=== PATIENT | female | born 1975 | race Caucasian/White ===

== ENCOUNTER 2021-07-24 17:58 | Emergency (ER) | payer MEDICAID ==
[~2021-07-24] VITALS: Ht 162.6 cm; Wt 81.6 kg
[2021-07-24 18:21] VITALS: BP 145/91
--- NOTE | 2021-07-24 18:48 | NUR ---
46YO F C/O HYPOGASTRIC PAIN X 5 DAYS. PAIN 7/10 PRESSURE-LIKE. ALSO COMPLAINS OF URINARY FREQUENCY. DENIES N/V/D. DENIES DYSURIA, HEMATURIA. PT IS MENOPAUSAL. PT TOOK IBUPROFEN THIS AM WHICH PROVIDED NO RELIEF. IN ED, VSS. ABDOMEN SOFT, WITH TENDERNESS ON HYPOGASTRIC AREA. NORMOACTIVE BOWEL SOUNDS. PT POSITIONED COMFORTABLY IN BED. ERMD MADE AWARE OF PT STATUS. PMH: S/P APPENDECTOMY (2018), PRE-DIABETIC MEDS: NONE NKA
--- NOTE | 2021-07-24 19:20 | NUR ---
REPORT RECEIVED FROM FAUZIA TYSON FOR CONTINUITY OF PATIENT CARE AT THIS TIME.
--- NOTE | 2021-07-24 19:34 | NUR ---
REPORT GIVEN TO FAUZIA RAUSCH. ALL CARES TRANSFERRED AT THIS TIME.
[2021-07-24] MEDS ORDERED: PHENAZOPYRIDINE 100 MG TAB PO ONE (20:15)
[2021-07-24] MEDS ORDERED: KETOROLAC 30 MG/ML VIAL IM ONE (20:15)
[2021-07-24 21:32] LABS: APPEARANCE,URINE CLEAR (CLEAR); BILIRUBIN,URINE NEGATIVE (NEGATIVE); BLOOD, URINE NEGATIVE (NEGATIVE); COLOR,URINE YELLOW (YELLOW); LEUKOCYTE ESTERASE ,URINE 1+ (NEGATIVE); NITRITE, URINE NEGATIVE (NEGATIVE); UGLUCOSE NEGATIVE (NEGATIVE)
--- NOTE | 2021-07-24 21:33 | NUR ---
PATIENT LAYING IN BED SUPINE. BED LOCKED IN LOWEST POSITION W X1 SIDERAIL UP. PATIENT W C/O LOWER ABDOMINAL PAIN 10/10 AND TEMPORAL HEADACHE 7/10 AND SOME SOB. PATIENT DENIES ANY N/V, DIZZINESS, BLURRY VISION OR CHEST PAIN. BOWEL SOUNDS PRESENT, ABDOMEN SOFT AND TENDER. PATIENT CONNECTED TO MONITOR W VSS.
[2021-07-24] MEDS ORDERED: PHENAZOPYRIDINE 100 MG TAB ONE (21:34)
[2021-07-24] MEDS ORDERED: KETOROLAC 30 MG/ML VIAL ONE (21:35)
[2021-07-24] MEDS ORDERED: CEPH-588 PO (21:47)
[2021-07-24] MEDS ORDERED: PYR100 PO (21:47)
[2021-07-24] MEDS ORDERED: NAPR-54 PO (21:47)
[2021-07-24] MEDS ORDERED: cefTRIAXone 1,000 MG in LIDOCAINE MPF 1% 2.1 ML IM ONE (21:50)
[2021-07-24] MEDS ORDERED: cefTRIAXone 1,000 MG VIAL ONE (21:51)
[2021-07-24] MEDS ORDERED: LIDOCAINE MPF 1% 5 ML ONE (21:51)
[2021-07-24 21:57] LABS: RBC,URINE 0-5 /HPF (0-5)
[2021-07-24] MEDS ORDERED: HYDROcodone/APAP 5/325 MG 1 TAB TAB PO ONE (22:45)
--- NOTE | 2021-07-24 22:45 | NUR ---
PATIENT C/O OF ONGOING ABDOMINAL PAIN , WORSENING WHEN SHE WALKS. ERMD AWARE.
--- NOTE | 2021-07-24 22:57 | NUR ---
PT TAKEN TO CT
--- NOTE | 2021-07-24 22:57 | NUR ---
PATIENT TAKEN TO CT VIA WHEEL CHAIR.
--- NOTE | 2021-07-24 22:58 | NUR ---
pt taken to ct via w/c
--- NOTE | 2021-07-25 | NUR ---
PATIENT REPORTING ABD PAIN IMPROVEMENT TO 5/10. VSS ON MONITOR.
[2021-07-25 01:00] VITALS: BP 122/78
--- NOTE | 2021-07-25 01:00 | NUR ---
Patient discharged with v/s stable. Written and verbal after care instructions given and explained. Patient alert, oriented and verbalized understanding of instructions. Ambulatory with steady gait. All questions addressed prior to discharge. ID band removed. Patient advised to follow up with PMD. Rx of KEFLEX, PYRIDIUM, NAPROSYN given. Patient educated on indication of medication including possible reaction and side effects. Opportunity to ask questions provided and answered.
--- NOTE | 2021-07-25 01:04 | NUR ---
[facility] in [facility] - 07/25/21 at [address] Nice examining patient.
== END 2021-07-25 01:00 | disposition home or self-care (01) ==
LOC: MED 17:58
DX: N39.0 Urinary tract infection, site not specified (principal); Z79.899 Other long term (current) drug therapy; Z90.49 Acquired absence of other specified parts of digestive tract; Z98.890 Other specified postprocedural states
CPT/HCPCS: 74176; 81001; 81025; 87086; 96372; 99285; J0696; J1885; J2001